=== PATIENT | male | born 1985 | race Two or more races ===

== ENCOUNTER 2018-02-05 21:54 | Emergency (ER) | payer OTHER ==
[~2018-02-05] VITALS: Ht 167.6 cm; Wt 77.1 kg
[~2018-02-05 21:54] MED LIST: CATAPRES0.1 MG ORAL; XANAX0.25 MG ORAL
[2018-02-05] MEDS ORDERED: Tetanus/Diptheria/Pertussis Vaccine 0.5ml Syr IM ONE (22:00)
[2018-02-05 22:20] VITALS: BP 123/69
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
[2018-02-06] VITALS: BP 115/68
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
[2018-02-06] MEDS ORDERED: CEPHALEXIN500 MG ORAL (00:02)
[2018-02-06 00:15] VITALS: BP 123/69
== END 2018-02-06 00:15 | disposition home or self-care (01) ==
LOC: EDBD 21:54 → EMR 22:35
DX: S81.812A Laceration without foreign body, left lower leg, initial encounter (principal); Y04.2XXA Assault by strike against or bumped into by another person, initial encounter; Y92.512 Supermarket, store or market as the place of occurrence of the external cause; F11.10 Opioid abuse, uncomplicated; Z23 Encounter for immunization; I10 Essential (primary) hypertension; F41.9 Anxiety disorder, unspecified; Z88.1 Allergy status to other antibiotic agents
CPT/HCPCS: 90471; 90715; 99283